=== PATIENT | female | born 1950 | race Caucasian/White ===

== ENCOUNTER 2018-11-02 14:09 | Emergency (ER) | payer OTHER ==
[~2018-11-02] VITALS: Ht 157.5 cm; Wt 56.7 kg
[~2018-11-02 14:09] MED LIST: ELAVIL PO; PRO40 PO
[2018-11-02 14:20] VITALS: BP_SYST 138
[2018-11-02] MEDS ORDERED: PROMETHAZINE 6.25 MG/ CODEINE 10 MG/ 5 ML PO ONE (15:00)
[2018-11-02] MEDS: PANTOPRAZOLE SODIUM 40 MG TAB PO ONE ×2 (15:15→16:14)
[2018-11-02 16:27] VITALS: BP_SYST 128
== END 2018-11-02 16:26 | disposition home or self-care (01) ==
LOC: SED 14:09
DX: J20.9 Acute bronchitis, unspecified (principal); K21.9 Gastro-esophageal reflux disease without esophagitis; M79.7 Fibromyalgia; R03.0 Elevated blood-pressure reading, without diagnosis of hypertension; Z90.49 Acquired absence of other specified parts of digestive tract; Z88.1 Allergy status to other antibiotic agents; Z88.2 Allergy status to sulfonamides; Z91.041 Radiographic dye allergy status; Z91.040 Latex allergy status; Z88.8 Allergy status to other drugs, medicaments and biological substances
CPT/HCPCS: 71045; 99283